=== PATIENT | male | born 1950 | race Caucasian/White ===

== ENCOUNTER 2018-12-01 11:42 | Inpatient (IN) | payer MEDICARE ==
[~2018-12-01] VITALS: Ht 185.4 cm; Wt 92.5 kg
[2018-12-01] MEDS ORDERED: ASPIRIN 81 MG CHEW TAB PO ONE ×2 (11:45→14:30)
[2018-12-01] MEDS ORDERED: LORAZEPAM2 MG PO (11:58)
[2018-12-01] MEDS ORDERED: LOW DOSE ASPIRI81 MG PO (11:58)
[2018-12-01] MEDS ORDERED: FUROSEMIDE40 MG PO (11:58)
[2018-12-01] MEDS ORDERED: BYSTOLIC10 MG PO (11:58)
[2018-12-01] MEDS ORDERED: TRIAMTERENE-HC1 EAC2 PO (11:58)
[2018-12-01] MEDS ORDERED: ZYRTEC10 M3 PO (11:58)
[2018-12-01] MEDS ORDERED: POTASSIUM CHLO20 ME1 PO (11:58)
[2018-12-01 11:59] LABS: BASOPHILS # (AUTO) 0.1 (0.0-0.1); BASOPHILS % 0.6 % (0.0-1.0); EOSINOPHILS # (AUTO) 0.3 (0.0-0.4); EOSINOPHILS % 2.4 % (0.0-6.0); HEMATOCRIT 46.7 % (38.2-49.6); HEMOGLOBIN 15.8 g/dL (14.0-18.0); LYMPHOCYTES # (AUTO) 1.9 (1.0-3.2); LYMPHOCYTES % 18.2 % (18.0-39.1); MEAN CORPUSCULAR HEMOGLOBIN 31.2 pg (28-32); MEAN CORPUSCULAR HGB CONC 33.8 g/dL (31-35); MEAN CORPUSCULAR VOLUME 92.1 fL (81-99); NEUTROPHILS # (AUTO) 7.1 (2.1-6.9); NEUTROPHILS % 68.2 % (38.7-80.0); PLATELET COUNT 182 x10e3/uL (140-360); RED BLOOD COUNT 5.07 x10e6/uL (4.3-5.7); RED CELL DISTRIBUTION WIDTH 13.8 % (11.7-14.4)
[2018-12-01] MEDS ORDERED: NITROGLYCERIN 0.4 MG SUBL SL ONE (12:00)
[2018-12-01 12:11] LABS: INR 0.93; PARTIAL THROMBOPLASTIN TIME 28.7 seconds (23.8-35.5); PROTHROMBIN TIME 13.3 seconds (11.9-14.5)
[2018-12-01 12:19] LABS: ALBUMIN 3.9 g/dL (3.5-5.0); ALBUMIN/GLOBULIN RATIO 1.1 (0.8-2.0); ANION GAP 18.2 mmol/L (8-16); CALCIUM 9.4 mg/dL (8.4-10.2); CREATININE, SERUM 1.64 mg/dL (0.72-1.25); POTASSIUM 4.2 mmol/L (3.5-5.1)
[2018-12-01] MEDS ORDERED: SODIUM CHLORIDE 0.9% 1000ML 1,000 ML IV STA (12:26)
--- NOTE | 2018-12-01 12:27 | Diagnostic Imaging Report ---
Examination: Single AP view of the chest. COMPARISON: None. INDICATION: Chest pain DISCUSSION: The lungs are well-inflated. No focal airspace consolidation, pleural effusion, or pneumothorax. Tortuous thoracic aorta with atherosclerotic calcification. Cardiomediastinal contour and pulmonary vasculature are otherwise within normal limits for portable, AP technique. No acute osseous abnormality. IMPRESSION: 1. No acute cardiopulmonary abnormalities. Signed by: Dr. Giuseppe Mcdonnell M.D. on 12/01/2018 12:23 PM
[2018-12-01] MEDS ORDERED: SODIUM CHLORIDE 0.9% 1000ML 1,000 ML ONE (12:29)
[2018-12-01 12:38] LABS: CREATINE KINASE MB 1.4 ng/mL (0-5.0); THYROID STIMULATING HORMONE 2.101 uIU/mL (0.350-4.940)
[2018-12-01] MEDS ORDERED: FENTANYL CITRATE/PF 100MCG/2 ML INJ IV ONE (14:00)
[2018-12-01] MEDS ORDERED: SODIUM CHLORIDE 0.9% 1000ML 1,000 ML IV ONE (14:00)
[2018-12-01] MEDS ORDERED: ONDANSETRON HCL INJ 2MG/ML 2ML 2 MG/ML VIAL IV STA (14:14)
[2018-12-01] MEDS ORDERED: HEPARIN SOD (PORCINE) 5,000 UNIT/ML VIAL IV ONE (14:15)
--- NOTE | 2018-12-01 14:22 | Diagnostic Imaging Report ---
EXAMINATION: CT of the chest with contrast, PE protocol. TECHNIQUE: Spiral CT images of the chest were performed from the lung apices through the level of the adrenal glands after the IV administration of 100 cc Isovue-370. Thin section reconstructions were obtained with special concentration on the pulmonary arteries. COMPARISON: Chest radiograph earlier 12/01/2018 CLINICAL HISTORY:Shortness of breath, chest pain DISCUSSION: Vasculature: Extensive filling defects extending from the distal left pulmonary artery to the left upper and lower lobar and all segmental branches. Similarly, filling defect in the distal right pulmonary artery, with extension into the right upper lobe pulmonary artery, and right middle lobe pulmonary artery and all segmental branches. There is also extension into the right lower lobe pulmonary artery and the lateral and posterior basal segmental pulmonary arteries. No saddle embolus. The main pulmonary artery is patent and the pulmonary outflow tract is of normal caliber, measuring 28 mm. There is no ectasia or aneurysmal dilatation of the thoracic aorta. Great vessel origins are of normal caliber and configuration. Atherosclerotic calcification of the [place] coronary arteries. Lungs: 4 mm nodule right lower lobe series 3 image 55. Bandlike opacities in the lingula and laterally within the left lower lobe. Juxtapleural reticular and groundglass opacities in the bilateral lower lobes. 4 mm juxtapleural left lower lobe nodule series 3 image 83. 3 mm nodule right lower lobe series 3 image 56. Scattered subcentimeter air-filled cysts. No consolidation or gross mass lesion. Airways: Trachea, mainstem bronchi, and central lobar and segmental bronchi are patent. Pleura: No pleural effusion or pneumothorax. Heart and mediastinum: Disproportionate right ventricular dilatation with ratio of the right ventricular to left ventricular diameter greater than 1. Right atrial enlargement is also noted with contrast reflux into the intrahepatic IVC. No pericardial effusion. Prominent epicardial fat. No axillary, hilar, or mediastinal lymphadenopathy. Abdomen: Simple cyst in hepatic segment 2. Additional subcentimeter lesions throughout the visualized portions of the liver too small to further characterize but likely to represent additional small cysts. Visualized portions of the spleen, pancreas, and adrenal glands are unremarkable. Bones and soft tissues: <The thoracic skeleton is normal for age. The soft tissues are unremarkable.> IMPRESSION: Extensive acute bilateral pulmonary emboli as detailed above, with right heart strain evidenced by right ventricular dilatation. Scattered bilateral pulmonary nodules as above, which should be assessed for stability by CT scan of the chest without contrast in one year if the patient has a history of tobacco use or is at otherwise high risk of malignancy per Fleischner Society 2017 guidelines. Atherosclerotic vascular disease. Findings communicated by telephone to nurse practitioner Paolo Syed in the emergency center at 2:08 PM 12/01/2018. Signed by: Dr. Giuseppe Mcdonnell M.D. on 12/01/2018 2:19 PM
[2018-12-01] MEDS ORDERED: MORPHINE SULFATE 2 MG/ML SYR 1ML IV PRN (14:30)
[2018-12-01] MEDS ORDERED: SODIUM CHLORIDE FLUSH 10 ML SYR INJ PRN (14:30)
[2018-12-01] MEDS ORDERED: ONDANSETRON HCL INJ 2MG/ML 2ML 2 MG/ML VIAL IV PRN (14:30)
[2018-12-01] MEDS: SODIUM CHLORIDE 0.9% 1000ML 1,000 ML IV SCH (14:53)
[2018-12-01] MEDS: MORPHINE SULFATE INJ 4 MG/ML INJ 1ML IV PRN ×2 (14:53→18:14)
--- OUTSIDE RECORDS SUMMARY | 2018-12-01 15:02 | XMS REPORT ---
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 Allergies, Adverse Reactions, Alerts This patient has no known allergies or adverse reactions. Medications This patient has no known medications. Results Test Description Test Time Test Comments Text Results Atomic Results Result Comments CT CHEST W 2018-12-01 14:08:00 [facility] [address] [address] Patient Name: EB MALONEY MR #: [id number] : 1950 Age/Sex: 67/M Req #: [id number] Adm Physician: Ordered by: PAOLO SMITH PLC ENGINEER Report #: [id number] Location: ER Room/Bed: Procedure: [id number] CT/CT CHEST W Exam Date: 12/01/18 Exam Time: 1330 REPORT STATUS: Signed EXAMINATION: CT of the chest with contrast, PE protocol. TECH NIQUE: Spiral CT images of the chest were performed from the lung apices through the level of the adrenal glands after the IV administration of 100 cc Isovue-370. Thin section reconstructions were obtained with special concentration on the pulmonary arteries. COMPARISON: Chest radiograph earlier 12/01/2018 CLINICAL HISTORY:Shortness of breath, chest pain DISCUSSION: Vasculature: Extensive filling defects extending from the distal left pulmonary artery to the left upper and lower lobar and all segmental branches. Similarly, filling defect in the distal right pulmonary artery, with extension into the right upper lobe pulmonary artery, and right middle lobe pulmonary artery and all segmental branches. There is also extension into the right lower lobe pulmonary artery and the lateral and posterior basal segmental pulmonary arteries. No saddle embolus. The main pulmonary artery is patent and the pulmonary outflow tract is of normal caliber, measuring 28 mm. There is no ectasia or aneurysmal dilatation of the thoracic aorta. Great vessel origins are of normal caliber and configuration. Atherosclerotic calcification of the [place] coronary arteries. Lungs: 4 mm nodule right lower lobe series 3 image 55. Bandlike opacities in the lingula and laterally within the left lower lobe. Juxtapleural reticular and groundglass opacities in the bilateral lower lobes. 4 mm juxtapleural left lower lobe nodule series 3 image 83. 3 mm nodule right lower lobe series 3 image 56. Scattered subcentimeter air-filled cysts. No consolidation or gross mass lesion. Airways: Trachea, mainstem bronchi, and central lobar and segmental bronchi are patent. Pleura: No pleural effusion or pneumothorax. Heart and mediastinum: Disproportionate right ventricular dilatation with ratio of the right ventricular to left ventricular diameter greater than 1. Right atrial enlargement is also noted with contrast reflux into the intrahepatic IVC. No pericardial effusion. Prominent epicardial fat. No axillary, hilar, or mediastinal lymphadenopathy. Abdomen: Simple cyst in hepatic segment 2. Additional subcentimeter lesions throughout the visualized portions of the liver too small to further characterize but likely to represent additional small cysts. Visualized portions of the spleen, pancreas, and adrenal glands are unremarkable. Bones and soft tissues: <The thoracic skeleton is normal for age. The soft tissues are unremarkable.> IMPRESSION: Extensive acute bilateral pulmonary emboli as detailed above, with right heart strain evidenced by right ventricular dilatation. Scattered bilateral pulmonary nodules as above, which should be assessed for stability by CT scan of the chest without contrast in one year if the patient has a history of tobacco use or is at otherwise high risk of malignancy per Fleischner Society 2017 guidelines. Atherosclerotic vascular disease. Findings communicated by telephone to nurse practitioner Paolo Smith in the emergency center at 2:08 PM 12/01/2018. Signed by: Dr. Brad Garcia M.D. on 12/01/2018 2:19 PM Dictated By: BRAD GARCIA MD 1419 Transcribed By: HO on 12/01/181418 COPY TO: PAOLO SMITH NP CHEST SINGLE (PORTABLE) 2018-12-01 12:22:00 [address] [address] Patient Name: EB MALONEY MR #: [id number] : 1950 Age/Sex: 67/M Req #: [id number] Adm Physician: Ordered by: PAOLO SMITH NP Report #: [id number] Location: ER Room/Bed: Procedure: [id number] DX/CHEST SINGLE (PORTABLE) Exam Date: 12/01/18 Exam Time: 1200 REPORT STATUS: Signed Examination: Single AP view of the chest. COMPAR SIMONE: None. INDICATION: Chest pain DISCUSSION: The lungs are well-inflated. No focal airspace consolidation, pleural effusion, or pneumothorax. Tortuous thoracic aorta with atherosclerotic calcification. Cardiomediastinal contour and pulmonary vasculature are otherwise within normal limits for portable, AP technique. No acute osseous abnormality. IMPRESSION: 1. No acute cardiopulmonary abnormalities. Signed by: Dr. Brad Garcia M.D. on 12/01/2018 12:23 PM Dictated By: BRAD GARCIA MD 1223 Transcribed By: HO on 12/01/181222 COPY TO: PAOLO SMITH NP
[2018-12-01] MEDS ORDERED: HEPARIN 25000UNITS/0.45% NS 250 ML BAG IV ONE (15:04)
[2018-12-01] MEDS: HEPARIN 25,000U/0.45% NS 250ML 1,500 UNIT in Premix Bag 250 ML IV SCH (15:10)
[2018-12-01] MEDS ORDERED: SODIUM CHLORIDE 0.9% 50ML 50 ML ONE (15:12)
[2018-12-01] MEDS ORDERED: IOPAMIDOL 370 MG/ML 200 ML INFUS..BTL INJ ONE (15:13)
[2018-12-01] MEDS ORDERED: LORAZEPAM 2 MG PO PRN (15:30)
--- NOTE | 2018-12-01 16:15 | Consultation ---
DATE OF CONSULTATION: Patient of Dr. Kendrick. 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 Worse yesterday morning. Drove himself to the doctor's office, nearly collapsed. Taken to the emergency room. History of hypertension. History of Meniere's disease. ALLERGIES: ALLERGIC TO PENICILLIN. MEDICATIONS 1. Bystolic. 2. Triamterene. 3. Potassium. 4. Lasix. 5. Lorazepam. PAST SURGICAL HISTORY: Has had a shunt in the right ear [address] Mooney. SOCIAL HISTORY: Nonsmoker. No alcohol. Claims to be active. Family corroborates this. FAMILY HISTORY: Positive for cancer and coronary disease. thinks his mother had pulmonary emboli, presumably associated with cancer. PHYSICAL EXAMINATION GENERAL: This is a tall white male in no acute distress, appears stated age. Has evidence of vitiligo. VITAL SIGNS: Temperature 96.8, pulse 100, respirations 22, blood pressure 124/90. LUNGS: Bilateral rales. HEART: Regular rhythm. ABDOMEN: Nontender. EXTREMITIES: Scar left knee. Trace edema, left. IMPRESSIONS 1. Deep venous thrombosis, left lower extremity, with submassive pulmonary emboli. 2. Hypertension. 3. Vitiligo. 4. History of Meniere's disease. As he is not hypotensive, we will defer tPA. As he has moderate renal failure, will defer Lovenox but continue IV heparin. Consider Coumadin therapy. Consider checking CEA in view of his family history. Patient does have multiple subcentimeter pulmonary nodules, too small to biopsy. Thank you for this kind referral. Job#: [id number] JOHNNY
[2018-12-01 16:52] LABS: BILIRUBIN,URINE NEGATIVE (NEGATIVE); CLARITY,URINE SL CLOUDY (CLEAR); COLOR,URINE YELLOW (YELLOW); KETONES,URINE NEGATIVE (NEGATIVE); LEUKOCYTE ESTERASE ,URINE NEGATIVE (NEGATIVE); NITRITE,URINE NEGATIVE (NEGATIVE); PROTEIN,URINE DIPSTICK NEGATIVE (NEGATIVE); URINE UROBILINOGEN 0.2 mg/dL (0.2 - 1)
[2018-12-01 17:04] LABS: EPITHELIAL CELLS,URINE RARE /LPF; MUCUS,URINE FEW (RARE)
--- NOTE | 2018-12-01 19:00 | NUR ---
RECEIVED REPORT FROM ALEKSANDRA WORRELL
--- NOTE | 2018-12-01 19:02 | Consultation ---
DATE OF CONSULTATION: December 01, 2018 CARDIOLOGY CONSULTATION REASON FOR CONSULT: Pulmonary embolism. CHIEF COMPLAINT: Syncope and chest pain. HISTORY OF PRESENT ILLNESS: Patient is a 67-year-old man, no prior history of DVT or PE, who presented with an episode of passing out right before his primary care visit, was seen by his primary care doctor and based on his history of chest pain and syncope was sent to the ER for further workup. Was found to have borderline blood pressure and was found to have acute pulmonary embolism in bilateral pulmonary arteries. Currently patient having mild chest pain otherwise and some mild shortness of breath. Denies any previous history of cardiovascular disease, DVT of pulmonary embolism. No bleeding issues. REVIEW OF SYSTEMS: As above, otherwise negative. FAMILY HISTORY: No family history of early CAD or sudden cardiac . SOCIAL HISTORY: Patient does not smoke, drink or abuse drugs. OUTPATIENT MEDICATIONS: Reviewed. PHYSICAL EXAMINATION: VITALS: Temperature afebrile, pulse 96, respiratory rate 18, blood pressure 121/82, satting 99% on 5 liters. GENERAL: A middle-aged man in mild respiratory distress. CARDIOVASCULAR: Tachycardic, regular. No murmurs, rubs, or gallops. RV heave. Palpable carotid pulses. Palpable radial pulses. RESPIRATORY: Clear to auscultation bilaterally. ABDOMEN: Soft, nontender, nondistended. NEURO AND PSYCH: Alert and oriented to person, place, and time. Normal affect. LABORATORY DATA: Reviewed. IMAGING DATA: Reviewed. Shows bilateral pulmonary emboli. ECG reviewed, shows RV strain. Echocardiogram reviewed, shows biventricular dysfunction and moderate LV hypertrophy, moderate tricuspid regurgitation, severe right ventricular systolic dysfunction, and moderate dilation of the right ventricle. Pulmonary artery systolic pressure approximately 55 mmHg. ASSESSMENT: 1. Acute bilateral pulmonary emboli. 2. Acute right ventricular dysfunction. 3. Acute deep vein thrombosis left lower extremity. 4. History of hypertension. 5. Hyperlipidemia. PLAN: Patient already started on IV heparin. Agree with this. Recommend starting him on IV fluids to maintain blood pressure given acute RV dysfunction. Will monitor him overnight. If there are any signs of end-organ hypoperfusion or shock, will need to be transferred to a facility with higher level of care. Please admit to ICU and monitor closely. Thank you for this consult. Will continue to follow. Job#: [id number] EV
--- NOTE | 2018-12-01 19:10 | NUR ---
PT AWAKE ALERT SKIN W/D RESP NONLAB, NAD NOTED. RESTING IN POC, FAMILY AT BEDSIDE
--- NOTE | 2018-12-01 22:17 | NUR ---
PT REQUESTING ATIVAN, MEDICATED PER ORDERS. AWAKE ALERT SKIN W/D RESP NONLAB. NAD NOTED.
[2018-12-01] MEDS: LORAZEPAM 1 MG TAB PO PRN (22:18)
[2018-12-02] MEDS: SODIUM CHLORIDE 0.9% 1000ML 1,000 ML IV SCH ×3 (00:07→21:41)
--- NOTE | 2018-12-02 00:25 | NUR ---
erp notified dr knox of troponin 0.5
--- NOTE | 2018-12-02 02:00 | NUR ---
RESTING WITH EYES CLOSED, EASILY AROUSED, SKIN W/D RESP NONLAB, NAD NOTED. DENIES ANY COMPLAINTS
--- NOTE | 2018-12-02 05:15 | NUR ---
RESTING WITH EYES CLOSED, SKIN W/D RESP NONLAB, NAD NOTED. DENIES COMPLAINTS.
[2018-12-02 05:34] LABS: BASOPHILS # (AUTO) 0.1 (0.0-0.1); BASOPHILS % 0.7 % (0.0-1.0); EOSINOPHILS # (AUTO) 0.3 (0.0-0.4); EOSINOPHILS % 2.8 % (0.0-6.0); HEMATOCRIT 39.3 % (38.2-49.6); HEMOGLOBIN 12.7 g/dL (14.0-18.0); LYMPHOCYTES # (AUTO) 1.3 (1.0-3.2); LYMPHOCYTES % 14.3 % (18.0-39.1); MEAN CORPUSCULAR HEMOGLOBIN 30.8 pg (28-32); MEAN CORPUSCULAR HGB CONC 32.3 g/dL (31-35); MEAN CORPUSCULAR VOLUME 95.4 fL (81-99); MONOCYTES # (AUTO) 0.9 (0.2-0.8); MONOCYTES % 10.7 % (4.4-11.3); NEUTROPHILS # (AUTO) 6.2 (2.1-6.9); NEUTROPHILS % 70.8 % (38.7-80.0); PLATELET COUNT 152 x10e3/uL (140-360); RED BLOOD COUNT 4.12 x10e6/uL (4.3-5.7)
[2018-12-02 05:59] LABS: CREATINE KINASE MB 2.6 ng/mL (0-5.0)
--- NOTE | 2018-12-02 06:11 | History and Physical ---
CHIEF COMPLAINT: Pulmonary embolus with DVT in right leg with pulmonary embolus and right-sided heart failure. HISTORY OF PRESENT ILLNESS: Patient is a gentleman who was in his usual normal state of health. He has a history of hypertension who presented to my office and collapsed in the foyer, but never lost consciousness and never lost stability. He was brought over by EMS to the hospital where he was noticed to have DVT of the right leg with pulmonary embolus. Mostly pulmonary embolus with some right-sided heart failure symptoms. He was placed on heparin, and he is now admitted for further evaluation and treatment. PAST MEDICAL HISTORY: Hypertension, chronic kidney disease, stage 3. MEDICATIONS: See DEC. ALLERGIES: PENICILLIN. SOCIAL HISTORY: Lives at home with his . Nonsmoker and nondrinker. FAMILY HISTORY: Noncontributory. PHYSICAL EXAMINATION VITLALS: 98.6, blood pressure 104/70, pulse 88, sats 99% on nasal cannula. GENERAL: No apparent distress. NECK: Supple. No lymphadenopathy. CARDIOVASCULAR: Regular rate and rhythm. LUNGS: Clear to auscultation bilaterally. ABDOMEN: Soft and nontender. EXTREMITIES: No clubbing or cyanosis. No edema. NEUROLOGICAL: Nonfocal. ASSESSMENT AND PLAN 1. Deep venous thrombosis: Continue with . 2. Hypertension: Will continue to monitor since his blood pressure is stable. 3. Right-sided heart failure: Will continue to monitor. Cardiology is on board. 4. Chronic kidney disease, stage 3: Will continue to monitor as well. Please see hospital chart for full details. Job#: [id number] MT
[2018-12-02 06:17] LABS: ANION GAP 14.3 mmol/L (8-16); BLOOD UREA NITROGEN 27 mg/dL (7-26); BUN/CREATININE RATIO 25 (6-25); CALCIUM 7.9 mg/dL (8.4-10.2); CARBON DIOXIDE 18 mmol/L (22-29); CHLORIDE 112 mmol/L (98-107); CREATININE, SERUM 1.06 mg/dL (0.72-1.25); EST GLOMERULAR FILTRATION RATE > 60 ML/MIN (60-); GLUCOSE 100 mg/dL (74-118); POTASSIUM 4.3 mmol/L (3.5-5.1); SODIUM 140 mmol/L (136-145)
[2018-12-02] MEDS: LORAZEPAM 1 MG TAB PO PRN ×2 (06:34→21:41)
--- NOTE | 2018-12-02 07:02 | NUR ---
report to elen bravo
--- NOTE | 2018-12-02 07:38 | NUR ---
DR. VALDEZ AT BEDSIDE FOR PATIENT EVAL AT THIS TIME.
--- NOTE | 2018-12-02 07:38 | NUR ---
SALOMEE BP 85/66, VIANEYE BP 89/69; DR. VALDEZ ROUNDING, NOTIFIED OF BP, REQUESTING MANUAL BP. ERAN MANUAL BP 94/60. DR. VALDEZ NOTIFIED, ORDERED TO HOLD BYSTOLIC AND TRIAMTERENE/HCTZ AT THIS TIME.
[2018-12-02] MEDS ORDERED: GUAIFENESIN 200 MG/10 ML UDC PO PRN (07:45)
[2018-12-02] MEDS: NEBIVOLOL 10 MG TAB PO SCH (08:08)
[2018-12-02] MEDS: TRIAMTERENE/HCTZ 37.5-25 MG TAB PO SCH (08:09)
--- NOTE | 2018-12-02 08:09 | NUR ---
Dr. Parham rounding again at this time. EKG provided. No new orders rec'd.
[2018-12-02] MEDS: LORATADINE 10 MG TAB PO SCH (08:10)
[2018-12-02] MEDS: PANTOPRAZOLE SOD 40 MG TABEC PO SCH (08:10)
[2018-12-02] MEDS: ASPIRIN 81 MG ENTERIC COATED PO SCH (08:10)
[2018-12-02] MEDS: POTASSIUM CHLORIDE 20 MEQ TAB CR PO SCH (08:10)
[2018-12-02] MEDS ORDERED: HEPARIN 25000UNITS/0.45% NS 250 ML BAG IV ONE (08:11)
--- NOTE | 2018-12-02 08:15 | NUR ---
PT ASSISTED WITH BREAKFAST TRAY AT THIS TIME, TOLERATING WELL.
[2018-12-02] MEDS: HEPARIN 25,000U/0.45% NS 250ML 1,500 UNIT in Premix Bag 250 ML IV SCH ×2 (08:16→21:48)
[2018-12-02] MEDS ORDERED: NON-FORMULARY MEDICATION (Aspirin (Low Dose Aspirin Ec) 81 MG) PO SCH (09:00)
--- NOTE | 2018-12-02 10:03 | NUR ---
DR. Jo-Ann BOND AND DR. JEFERSON GARCÍA MD AT BEDSIDE DISCUSSING BENEFITS, RISKS, AND ALTERNATIVE TREATMENTS AT THIS TIME. PT VERBALIZES UNDERSTANDING, VERBAL CONSENT GIVEN AT THIS TIME.
[2018-12-02] MEDS ORDERED: ALTEPLASE 50 MG/VIAL (29 MILLION IU) IV NR (10:45)
--- NOTE | 2018-12-02 11:05 | NUR ---
Consents signed & placed on chart for PICC & TPA administration.
--- NOTE | 2018-12-02 11:15 | NUR ---
Laurent, RN PICC nurse at bedside, evaluating pt for PICC line placement.
--- NOTE | 2018-12-02 11:22 | NUR ---
DR. BHANDARI UPDATED ON PATIENT STATUS, NO NEW ORDERS RECEIVED AT THIS TIME, IN AGREEMENT WITH CURRENT ORDERS FOR CARE.
--- NOTE | 2018-12-02 12:15 | NUR ---
X-RAY AT BEDSIDE FOR POST-PROCEDURE CXR AT THIS TIME.
--- NOTE | 2018-12-02 12:30 | NUR ---
PT TRANSPORTED VIA STRETCHER TO RADIOLOGY FOR REPEAT POST-PROCEDURE CXR WITH GILMA CONTE AT THIS TIME. OXYGEN IN PLACE.
--- NOTE | 2018-12-02 12:53 | Diagnostic Imaging Report ---
EXAMINATION: CHEST XRAY LINE PLACEMENT INDICATION: Status post PICC. COMPARISON: Chest radiograph and CT Chest 12/01/2018. FINDINGS: TUBES and LINES: Interval placement of right-sided PICC which terminates in the lower SVC near the cavoatrial junction. LUNGS: Lungs are well inflated. Patchy opacities at the lung bases, likely atelectasis. There is no evidence of pneumonia or pulmonary edema. Multiple pulmonary nodules noted on CT chest from 12/01/2018 are not well characterized by radiograph. PLEURA: No pleural effusion or pneumothorax. HEART AND MEDIASTINUM: The cardiomediastinal silhouette is unchanged. Atherosclerotic calcifications of the aortic arch. BONES AND SOFT TISSUES: No acute osseous abnormality. UPPER ABDOMEN: No free air under the diaphragm. IMPRESSION: Interval placement of right-sided PICC which terminates in the lower SVC near the cavoatrial junction. No evidence of pneumothorax. Signed by: Dr. Damien Oneal MD on 12/02/2018 12:49 PM
--- NOTE | 2018-12-02 12:55 | NUR ---
Right sided PICC line ok to use per Radiology MD.
--- NOTE | 2018-12-02 12:58 | NUR ---
PT TRANSFERRED TO HOSPITAL BED AT THIS TIME, TOLERATING WELL, CALL LIGHT WITHIN EASY REACH, WILL CONTINUE TO MONITOR.
--- NOTE | 2018-12-02 13:00 | NUR ---
Pt sitting up comfortably in bed. RR even and unlabored. Vitals stable at this present time. Family at bedside. Call light remains in pt reach. Pt denies any CP or any other discomfort at the present time. Will continue to monitor.
--- NOTE | 2018-12-02 15:26 | NUR ---
Pt resting comfortably. RR even and unlabored. Pt denies any CP or any other discomfort at the present time. Family remains at bedside. Will continue to monitor.
[2018-12-02] MEDS ORDERED: IPRATROPIUM BROMIDE 0.02% 2.5 ML NEB NEB PRN (16:00)
[2018-12-02] MEDS ORDERED: BENZONATATE 100 MG CAP PO PRN (16:00)
--- NOTE | 2018-12-02 16:05 | Progress Note ---
DATE: December 02, 2018 CARDIOLOGY PROGRESS NOTE SUBJECTIVE: Is still having some mild chest pain, mild shortness of breath. Blood pressure has been borderline all morning. OBJECTIVE VITAL SIGNS: Temperature 98.8, pulse 100, respiratory rate 20, blood pressure 96/66, satting 96% on nasal cannula. GENERAL: Middle-aged white man in no acute distress. CARDIOVASCULAR: Tachycardic, regular, RV heave. No murmurs. LUNGS: Clear to auscultation. ABDOMEN: Soft, nontender, nondistended. Obese. NEURO: Intact, alert and oriented to person, place and time. Normal affect. INPATIENT MEDICATIONS: Reviewed. LABORATORY DATA: Reviewed. IMAGING DATA: Reviewed. TELEMETRY: Reviewed. Shows sinus tachycardia. ASSESSMENTS 1. Acute bilateral pulmonary emboli. 2. Acute right ventricular dysfunction. 3. Acute deep vein thromboses of left lower extremity. PLAN: Had a long discussion regarding risks and benefits of systemic tPA with the patient. The patient is agreeable to proceed with dosing tPA. Continue heparin drip. Still awaiting transfer to the ICU. Monitor closely for any bleeding issues post tPA. Will transfer for CT scan of the head if any symptoms change. Would avoid starting him on Levophed unless mean arterial pressures were to decrease below 60. Will continue IV fluids given RV dysfunction. Thank you for this consult. Will continue to follow. Job#: [id number] JOHNNY
[2018-12-02] MEDS ORDERED: AMIODARONE HCL 150MG 100 ML IV ONE (18:15)
[2018-12-02] MEDS ORDERED: AMIODARONE 900MG 500 ML IV ONE (18:29)
--- NOTE | 2018-12-02 19:15 | NUR ---
REPORT GIVEN TO GILMA JOHN CANINE ENFORCEMENT OFFICER NURSE.
--- NOTE | 2018-12-02 19:30 | NUR ---
RECEIVED ORDERS FROM DR. CARROLL TO REDRAW PTT AT THIS TIME, CONTINUE HEPARIN FOR PTT <80 PER PROTOCL BUT WITHOUT STARTING BOLUS.
[2018-12-02] MEDS: NOREPINEPHRINE INJ 4MG/4ML 8 MG in DEXTROSE 5% 250ML 250 ML IV SCH (20:29)
--- NOTE | 2018-12-03 00:11 | NUR ---
patient resting in bed, no distress noted, call light is in reach
--- NOTE | 2018-12-03 04:21 | NUR ---
ptt within therapeutic range.
[2018-12-03 04:36] LABS: BASOPHILS % 0.5 % (0.0-1.0); EOSINOPHILS # (AUTO) 0.5 (0.0-0.4); EOSINOPHILS % 6.4 % (0.0-6.0); HEMATOCRIT 36.2 % (38.2-49.6); HEMOGLOBIN 12.2 g/dL (14.0-18.0); LYMPHOCYTES # (AUTO) 1.3 (1.0-3.2); LYMPHOCYTES % 15.3 % (18.0-39.1); MEAN CORPUSCULAR HGB CONC 33.7 g/dL (31-35); MEAN CORPUSCULAR VOLUME 91.9 fL (81-99); MONOCYTES % 11.7 % (4.4-11.3); NEUTROPHILS # (AUTO) 5.5 (2.1-6.9); NEUTROPHILS % 65.6 % (38.7-80.0); PLATELET COUNT 135 x10e3/uL (140-360); RED BLOOD COUNT 3.94 x10e6/uL (4.3-5.7); RED CELL DISTRIBUTION WIDTH 13.6 % (11.7-14.4)
[2018-12-03 05:01] LABS: ALANINE AMINOTRANSFERASE 8 IU/L (0-55); ALBUMIN 2.9 g/dL (3.5-5.0); ALBUMIN/GLOBULIN RATIO 1.3 (0.8-2.0); ALKALINE PHOSPHATASE 48 IU/L (40-150); ANION GAP 12.7 mmol/L (8-16); BLOOD UREA NITROGEN 17 mg/dL (7-26); BUN/CREATININE RATIO 19 (6-25); CARBON DIOXIDE 22 mmol/L (22-29); CHLORIDE 108 mmol/L (98-107); EST GLOMERULAR FILTRATION RATE > 60 ML/MIN (60-); GLUCOSE 96 mg/dL (74-118); POTASSIUM 3.7 mmol/L (3.5-5.1); SODIUM 139 mmol/L (136-145)
[2018-12-03] MEDS: SODIUM CHLORIDE 0.9% 1000ML 1,000 ML IV SCH ×2 (07:00→17:10)
--- NOTE | 2018-12-03 07:10 | NUR ---
WALKING ROUNDS COMPLETED AT THIS TIME WITH GILMA JOHN. DRIPS VERIFIED, AMIODARONE DECREASED, SEE TITRATION WORKSHEET. PATIENT RESTING IN BED, DENIES C/O PAIN, SOB, OR COUGH AT THIS TIME, CALL LIGHT IN REACH.
--- NOTE | 2018-12-03 07:14 | NUR ---
walking rounds with deon DILLARD
--- NOTE | 2018-12-03 07:44 | Diagnostic Imaging Report ---
EXAMINATION: CHEST SINGLE (PORTABLE) INDICATION: ^cough ^[id number] ^[id number] COMPARISON: 12/02/[address] chest 12/01/2018 FINDINGS: AP view TUBES and LINES: Stable right PICC with tip overlying the cavoatrial junction. LUNGS: Lungs are well inflated. Worsening bandlike airspace opacity in the left lower lobe. Subsegmental atelectasis in the medial right lower lobe is unchanged. PLEURA: No pleural effusion or pneumothorax. HEART AND MEDIASTINUM: The cardiac silhouette is mildly prominent. BONES AND SOFT TISSUES: No acute osseous lesion. Soft tissues are unremarkable. UPPER ABDOMEN: No free air under the diaphragm. IMPRESSION: Worsening left lower lobe airspace opacity suggestive of worsening atelectasis or developing pneumonia. Continue to follow-up. Signed by: Dr. Amelia Barrow M.D. on 12/03/2018 7:41 AM
--- NOTE | 2018-12-03 08:55 | Progress Note ---
DATE: SUBJECTIVE: This patient comes in with chest pain. The patient was reported to have pulmonary embolism. TPA given. The patient is on heparin drip right now. Patient also developed atrial flutter. The patient is started on amiodarone drip. Currently, rate is controlled. OBJECTIVE VITAL SIGNS: Temperature is 98.3, pulse of 70, blood pressure is 143/77, pulse oximetry is 100%. HEENT: Normocephalic, atraumatic. Pupils are reactive to light and accommodation. CVS: S1 and S2. Regular rate and rhythm. No murmurs. LUNGS: Clear to auscultation. ABDOMEN: Soft, nontender, nondistended. EXTREMITIES: No clubbing, no cyanosis, no edema. IMAGING: The patient's venous extremity did show DVT, so CT chest was done and showed extensive acute bilateral pulmonary embolism, scattered bilateral pulmonary nodules, and also atherosclerotic valvular disease. ASSESSMENT 1. Acute bilateral pulmonary embolism, status post TPA. 2. Acute right ventricular dysfunction. 3. Deep venin thrombosis of the right lower extremity. 4. Hypertension. 5. Hyperlipidemia. PLAN 1. Patient is currently on heparin drip. Continue with the same. 2. Also on amiodarone for atrial fibrillation, controlled. 3. We will continue to monitor the patient. Continue with heparin drip and taper off the amiodarone. Further recommendations per clinical course. We will continue to monitor the patient along with the consultants. Job#: [id number]
[2018-12-03] MEDS: POTASSIUM CHLORIDE 20 MEQ TAB CR PO SCH (10:30)
[2018-12-03] MEDS: PANTOPRAZOLE SOD 40 MG TABEC PO SCH (10:30)
[2018-12-03] MEDS: LORATADINE 10 MG TAB PO SCH (10:30)
[2018-12-03] MEDS: ASPIRIN 81 MG ENTERIC COATED PO SCH (10:30)
[2018-12-03] MEDS: TRIAMTERENE/HCTZ 37.5-25 MG TAB PO SCH (10:34)
[2018-12-03] MEDS: NEBIVOLOL 10 MG TAB PO SCH (10:34)
--- NOTE | 2018-12-03 10:35 | NUR ---
GILMA FOUNTAINCARROT TIER AT BEDSIDE AT THIS TIME TO REDRESS PICC LINE SITE, PATIENT WAS COMPLAINING OF DISCOMFORT WITH THE ADHESIVE.
[2018-12-03] MEDS: NOREPINEPHRINE INJ 4MG/4ML 8 MG in DEXTROSE 5% 250ML 250 ML IV SCH (11:00)
--- NOTE | 2018-12-03 11:47 | Progress Note ---
DATE: CARDIOLOGY PROGRESS NOTE SUBJECTIVE: Patient states that he feels so much better today. Denies any chest pain, shortness of breath, palpitations, or dizziness. He is status post TPA yesterday. OBJECTIVE VITAL SIGNS: Temperature 98.3, pulse 74, respiratory rate 19, blood pressure 128/83, oxygen saturation 98% on room air. GENERAL: Alert and oriented x3, resting comfortably in bed, does not appear to be in any acute distress. LUNGS: Diminished breath sounds posterior lower lobes with some crackles in the left lower lobe. Otherwise clear to auscultation in the upper lobes. CARDIOVASCULAR: Regular rate and rhythm. Normal S1, S2. No murmurs noted. ABDOMEN: Soft, nontender. EXTREMITIES: Lower extremities, trace edema noted. CARDIOVASCULAR MEDICATIONS 1. Aspirin 81 mg p.o. daily. 2. Heparin IV drip. 3. Amiodarone IV drip. 4. Bystolic 10 mg p.o. daily. 5. Maxzide 1 tablet p.o. daily. LABS: WBC 8.41, hemoglobin 12.2, hematocrit 36.2, platelets 135. Sodium 139, potassium 3.7, BUN 17, creatinine 0.90. AST 12, ALT 8, alkaline phosphatase 48. Chest x-ray from this morning with worsening left lower lobe airspace opacity suggestive of worsening atelectasis or developing pneumonia, continue to follow. ASSESSMENT 1. Paroxysmal atrial fibrillation, reported atrial flutter last night. 2. Acute bilateral pulmonary emboli. 3. Acute right ventricular dysfunction. 4. Acute deep venous thrombosis in the left lower lobe. 5. Hypertension. PLAN: Medications will be adjusted and altered this morning. Transition from heparin drip to Xarelto. Instructions have been given to the nurse. Okay to discontinue amiodarone drip, transition to amiodarone p.o. In addition, we will be adding metoprolol and Bystolic. Continue to monitor this patient very closely. Unless symptoms change, no reasons for repeat CT at this time. Continue to monitor for any obvious signs of bleeding. We will continue to follow this patient very closely. Dictated by: Ijeoma Garibay NP Job#: [id number] SANTHOSH
--- NOTE | 2018-12-03 12:00 | NUR ---
Dr. Carr rounding at this time.
[2018-12-03] MEDS ORDERED: RIVAROXABAN 15 MG TABLET PO SCH ×3 (13:15→17:00)
[2018-12-03] MEDS: RIVAROXABAN 15 MG TABLET PO SCH ×2 (13:45→17:00)
[2018-12-03] MEDS ORDERED: HEPARIN 25000UNITS/0.45% NS 250 ML BAG IV ONE (13:45)
[2018-12-03] MEDS: AMIODARONE HCL 200 MG TAB PO SCH ×2 (15:00→17:00)
[2018-12-03] MEDS: METOPROLOL TARTRATE 50 MG TAB PO SCH (15:50)
[2018-12-03] MEDS ORDERED: AMIODARONE HCL 200 MG TAB PO SCH (17:00)
--- NOTE | 2018-12-03 17:10 | NUR ---
PT ASSISTED WITH DINNER TRAY AT THIS TIME, TOLERATING WELL.
[2018-12-03 18:29] VITALS: BP 130/70
[2018-12-03 18:31] VITALS: BP 130/70
[2018-12-03 18:42] VITALS: BP 130/70
--- NOTE | 2018-12-03 19:10 | NUR ---
REPORT RECEIVED FROM OFF GOING NURSE, PT SITTING UP IN BED ALERT AND ORIENTED, PT VISITING WITH FAMILY, O2 NC WORN, HOB ELEVATED, TELEMETRY WITH CONT PULSE OX NOTED, DENIES NEEDS, IV INFUSING PER ORDER, CALL LIGHT IN REACH, INSTRUCTED TO CALL WITH NEEDS
[2018-12-03 20:00] VITALS: BP 144/80
[2018-12-03] MEDS: LORAZEPAM 1 MG TAB PO PRN (20:50)
[2018-12-03 21:02] VITALS: BP 144/80
[2018-12-04] VITALS (8 sets, daily range): BP systolic 101–141; BP diastolic 58–81
[2018-12-04] MEDS: SODIUM CHLORIDE 0.9% 1000ML 1,000 ML IV SCH ×2 (02:20→13:27)
--- NOTE | 2018-12-04 04:47 | NUR ---
PT RESTING IN BED WITH EYES CLOSED, HOB ELEVATED, O2 NC WORN, NO DISTRESS NOTED, MANAGER INPATIENT WORN, CALL LIGHT IN REACH, IV INFUSING PER ORDER
--- NOTE | 2018-12-04 06:53 | Progress Note ---
DATE: SUBJECTIVE: The patient is here for pulmonary embolism, status post TPA. Currently asymptomatic. The patient is on Xarelto, has been switched from the heparin drip. No symptoms. The patient did walk yesterday. Pulse oximetry is maintaining and no shortness of breath or chest pain noted by the patient. MEDICATIONS: Currently, the patient is on amiodarone, aspirin, benzonatate, loratadine, metoprolol, morphine sulfate as needed, Zofran as needed, pantoprazole, potassium chloride, and Xarelto. OBJECTIVE: VITAL SIGNS: Temperature is 98.1, pulse is 101, respirations of 18, blood pressure is 108/69, pulse oximetry of 96%. He is on 3 liters of nasal cannula. HEENT: Normocephalic, atraumatic. Pupils are reactive to light and accommodation. CVS: S1 and S2, irregularly irregular. ABDOMEN: Nontender, nondistended. EXTREMITIES: No clubbing, no cyanosis or edema. LABORATORY VALUES: Yesterday, his white count was 8.4, hemoglobin of 12.2, and hematocrit of 36.2. Chemistries; sodium 139, potassium 3.7, BUN 17, creatinine 0.90. Troponins 0.581, trending down to 0.348. His carcinoembryonic antigen was 1.4. ASSESSMENT: 1. Pulmonary embolism, status post tissue plasminogen activator. 2. Ventricular dysfunction. 3. Deep venin thrombosis. 4. Hypertension. 5. Hyperlipidemia. 6. Paroxysmal atrial fibrillation. PLAN: The patient will be monitored on tele. The patient has been flipping from AFib to normal sinus rhythm. Transition from heparin to Xarelto has been done. The patient is back on amiodarone p.o. from the drip. Continue to monitor this patient very closely. Patient does get tachycardic from [id number]. His blood pressure has been maintained low. Amiodarone will be adjusted for rate control. We will continue to monitor the patient with consultants, may need a CT of the abdomen to rule out any pathology of deep vein thrombosis later on. Job#: [id number] ALISA
[2018-12-04] MEDS: PANTOPRAZOLE SOD 40 MG TABEC PO SCH (08:21)
[2018-12-04] MEDS: METOPROLOL TARTRATE 50 MG TAB PO SCH ×3 (08:21→16:48)
[2018-12-04] MEDS: LORATADINE 10 MG TAB PO SCH (08:21)
[2018-12-04] MEDS: AMIODARONE HCL 200 MG TAB PO SCH ×2 (08:21→16:48)
[2018-12-04] MEDS: ASPIRIN 81 MG ENTERIC COATED PO SCH (08:21)
[2018-12-04] MEDS: POTASSIUM CHLORIDE 20 MEQ TAB CR PO SCH (08:21)
[2018-12-04] MEDS: RIVAROXABAN 15 MG TABLET PO SCH ×2 (08:22→16:48)
[2018-12-04] MEDS: LORAZEPAM 1 MG TAB PO PRN ×2 (08:23→22:05)
[2018-12-04] MEDS: NOREPINEPHRINE INJ 4MG/4ML 8 MG in DEXTROSE 5% 250ML 250 ML IV SCH (11:00)
--- NOTE | 2018-12-04 12:06 | Progress Note ---
DATE: CARDIOLOGY PROGRESS NOTE SUBJECTIVE: Patient states that he feels much better today. Denies any chest pain, palpitations, or shortness of breath. OBJECTIVE VITAL SIGNS: Temperature 97.8, pulse 106, respiratory rate 21, blood pressure 122/74, oxygen saturation 95% on 3 liters nasal cannula. GENERAL: Alert and oriented x 3, resting comfortably in bed, does not appear to be in any acute distress. LUNGS: Clear to auscultation throughout. No wheezing. No rhonchi or crackles. CARDIOVASCULAR: Regular rate and rhythm. Tachycardic this morning. Atrial flutter noted this morning. ABDOMEN: Soft, nontender. Normoactive bowel sounds. EXTREMITIES: Lower extremities, trace edema bilaterally. CARDIOVASCULAR MEDICATIONS 1. Xarelto 15 mg p.o. b.i.d. 2. Amiodarone 200 mg p.o. b.i.d. 3. Metoprolol 50 mg p.o. b.i.d. 4. Aspirin 81 mg p.o. daily. LABS: No new labs today. ASSESSMENT 1. Paroxysmal atrial flutter, last episode this morning. 2. Acute bilateral pulmonary emboli. 3. Acute right ventricular dysfunction. 4. Acute deep venous thrombosis in the left lower extremity. 5. Hypertension; however, hypotensive now. PLAN: Repeat CT scan per wireworker supervisor this morning. We will provide Xarelto samples to this patient for transition to home and continuation of therapy. Maintain patient on telemetry. Up-titrate dose of metoprolol above for better rate control. Keep in-house for at least another day as we continue to monitor this patient for symptom improvement. Repeat echocardiogram within 1 week after being discharged. We will continue to follow very closely. Dictated by: Ijeoma Garibay NP Job#: [id number] LPA
--- NOTE | 2018-12-04 15:05 | NUR ---
Visit made by the Spiritual Care Department Pastoral Visitor, Lisa Polk. PV provided pastoral presence, hospitality, and supportive listening. Pastoral Visitor informed pt/family of the scope of [employer] and availability. SHONA WHITE Active [employer] Systems Administrator Spiritual Care Department O: [phone] Pager: [phone] ([phone] calling from)
--- NOTE | 2018-12-04 19:32 | NUR ---
received report from day nurse. patient is resting comfortably in bed. bed is in lowest position and call lopez is within reach. will continue to monitor patient.
[2018-12-05 00:41] VITALS: BP 125/65
[2018-12-05 04:00] VITALS: BP 155/68
[2018-12-05 05:15] LABS: BASOPHILS # (AUTO) 0.1 (0.0-0.1); BASOPHILS % 0.7 % (0.0-1.0); EOSINOPHILS # (AUTO) 0.5 (0.0-0.4); EOSINOPHILS % 6.1 % (0.0-6.0); HEMATOCRIT 35.3 % (38.2-49.6); HEMOGLOBIN 11.8 g/dL (14.0-18.0); LYMPHOCYTES # (AUTO) 0.9 (1.0-3.2); LYMPHOCYTES % 11.9 % (18.0-39.1); MEAN CORPUSCULAR HEMOGLOBIN 31.1 pg (28-32); MEAN CORPUSCULAR HGB CONC 33.4 g/dL (31-35); MEAN CORPUSCULAR VOLUME 92.9 fL (81-99); MONOCYTES # (AUTO) 0.8 (0.2-0.8); MONOCYTES % 11.2 % (4.4-11.3); NEUTROPHILS # (AUTO) 5.2 (2.1-6.9); NEUTROPHILS % 69.7 % (38.7-80.0); PLATELET COUNT 199 x10e3/uL (140-360); RED CELL DISTRIBUTION WIDTH 13.1 % (11.7-14.4)
[2018-12-05] MEDS: SODIUM CHLORIDE 0.9% 1000ML 1,000 ML IV SCH (05:32)
[2018-12-05 05:42] LABS: ANION GAP 11.7 mmol/L (8-16); BLOOD UREA NITROGEN 14 mg/dL (7-26); BUN/CREATININE RATIO 15 (6-25); CALCIUM 8.3 mg/dL (8.4-10.2); CARBON DIOXIDE 24 mmol/L (22-29); CHLORIDE 106 mmol/L (98-107); CREATININE, SERUM 0.91 mg/dL (0.72-1.25); EST GLOMERULAR FILTRATION RATE > 60 ML/MIN (60-); GLUCOSE 90 mg/dL (74-118); POTASSIUM 3.7 mmol/L (3.5-5.1); SODIUM 138 mmol/L (136-145)
--- NOTE | 2018-12-05 06:32 | NUR ---
covering attending MD rounding on patient. per attendings standpoint, patient is clear for discharge. MD has left prescriptions in the chart. attending wants retail support specialist to be contacted prior to discharge so that retail support specialist can write prescriptions for amiodarone. Contact retail support specialist prior to discharging patient.
--- NOTE | 2018-12-05 06:53 | Progress Note ---
DATE: Patient is a 68-year-old male who is status post tPA for pulmonary embolism. Patient is currently asymptomatic. Currently, also has transient AFib, and is on anticoagulation. Currently, afebrile. No bleeding. No chest pains. MEDICATIONS: The patient is on amiodarone, aspirin, albuterol and Atrovent treatments as needed, metoprolol, and Xarelto. The patient is also taking lorazepam 2 mg, which is his home medication for anxiety. PHYSICAL EXAMINATION VITAL SIGNS: Temperature is 98.8, pulse of 86, respirations of 20, blood pressure is 155/68, pulse oximetry of 97%. HEENT: Normocephalic and atraumatic. Pupils reactive to light and accommodation. CV: S1 and S2 normal. Currently, the patient goes in and out of AFib. ABDOMEN: Nontender and nondistended. EXTREMITIES: No clubbing. No cyanosis. No edema. LABORATORY VALUES: Hemoglobin is 11.8, hematocrit of 35.8. No left shift present. Chemistry: Sodium 138, BUN 11.7, creatinine of 14, and potassium is 3.7. ASSESSMENT 1. Pulmonary embolism: Status post tPA. 2. Ventricular dysfunction. 3. Deep venous thrombosis. 4. Hypertension. 5. Paroxysmal atrial fibrillation. 6. Hyperlipidemia. Continue monitoring on tele. The patient has been anticoagulated adequately and is on Xarelto. Is on amiodarone p.o. Patient will continue on the same medications on discharge, and also on beta blockade. Patient can be discharged today if it is okay with consultants. Further recommendations as an outpatient. Patient will be followed up by Dr. Kendrick in about a weeks' time. For further information, look on the chart. Job#: [id number] AMIE
--- NOTE | 2018-12-05 06:55 | NUR ---
report given to day nurse. patient is resting in bed. bed is in lowest position and call lopez is within reach.
--- NOTE | 2018-12-05 07:16 | NUR ---
Rcvd patient in report this am. Patient is asleep in bed at this time. No s/s of distress noted
[2018-12-05 07:44] VITALS: BP 142/80
[2018-12-05] MEDS: PANTOPRAZOLE SOD 40 MG TABEC PO SCH (08:35)
[2018-12-05] MEDS: RIVAROXABAN 15 MG TABLET PO SCH (08:35)
[2018-12-05] MEDS: LORATADINE 10 MG TAB PO SCH (08:35)
[2018-12-05] MEDS: METOPROLOL TARTRATE 50 MG TAB PO SCH (08:35)
[2018-12-05] MEDS: AMIODARONE HCL 200 MG TAB PO SCH (08:35)
[2018-12-05] MEDS: ASPIRIN 81 MG ENTERIC COATED PO SCH (08:35)
[2018-12-05] MEDS: POTASSIUM CHLORIDE 20 MEQ TAB CR PO SCH (08:35)
[2018-12-05 09:28] VITALS: BP 142/80
--- NOTE | 2018-12-05 09:41 | NUR ---
Patient refusing lung scan.
--- NOTE | 2018-12-05 09:42 | NUR ---
Patient refusing VQ scan and informed dr. gore. Patient has discharge orders
[2018-12-05] MEDS ORDERED: METOPROLOL TART50 MG PO (09:51)
[2018-12-05] MEDS ORDERED: AMIODARONE HCL200 MG PO (09:51)
[2018-12-05] MEDS ORDERED: XARELTO10 MG PO (09:52)
--- NOTE | 2018-12-05 10:03 | NUR ---
Removed PICC line from right upper arm. Tip intact. Pressure applied for 5 minutes and pressure dressing applied. No bleeding noted. Right upper arm bruised from being on blood thinners. No shortness or breath noted.
--- NOTE | 2018-12-05 10:32 | NUR ---
Patient discharged from facility to home. Patient assisted out via wheelchair and staff. Reviewed all discharge paperwork, follow up appts, and RX's given. Patient was given a coupon for xarelto. Patient refused to get it. This nurse informed the patient to get it for this time and follow up with dr. storm. Patient agreed
--- NOTE | 2018-12-05 10:42 | Progress Note ---
DATE: December 05, 2018 CARDIOLOGY PROGRESS NOTE SUBJECTIVE: Patient denies chest pain or shortness of breath. OBJECTIVE VITAL SIGNS: Temperature 97 degrees, pulse 77, respiratory rate 20, blood pressure 142/80, oxygen saturation 93% on room air. GENERAL: Awake and alert, in no acute distress. LUNGS: Clear to auscultation bilaterally. No wheezes or crackles. CARDIOVASCULAR: Normal rate, regular rhythm. No murmur. Normal S1 and S2. ABDOMEN: Soft. Nontender. EXTREMITIES: No edema. CARDIAC MEDICATIONS 1. Metoprolol tartrate 100 mg p.o. b.i.d. 2. Amiodarone 200 mg p.o. b.i.d. 3. Rivaroxaban 15 mg p.o. b.i.d. 4. Aspirin 81 mg p.o. daily. LABS: WBC 7.51, hemoglobin 11.8, hematocrit 35.3, platelets 199. Sodium 138, potassium 3.7, chloride 106, CO2 24, BUN 14, creatinine 0.91. TELEMETRY: Normal sinus rhythm. IMPRESSION 1. Acute bilateral pulmonary emboli. 2. Paroxysmal atrial flutter, currently normal sinus rhythm. 3. Acute right ventricular dysfunction. 4. Acute deep venous thrombosis in the left lower extremity. 5. Hypertension. RECOMMENDATIONS: Prescriptions were provided to the patient for Xarelto for treatment of the patient's acute venous thromboembolism. He was counseled on the importance of medication adherence. Patient will need followup echo 1 week after discharge. The patient is currently in normal sinus rhythm. We will continue amiodarone and metoprolol. He was instructed on the importance of followup with cardiology for management of his atrial flutter. He is anticoagulated with Xarelto for PE, which will also cover his need for anticoagulation for CVA prophylaxis. With regards to the patient's elevated troponin, he will need to follow up with cardiology for further ischemic evaluation. Continue current cardiac medications otherwise. Thank you for this consult. We will continue to follow. Job#: [id number]
--- NOTE | 2018-12-05 10:52 | NUR ---
IMM EXPLAINED, SIGNED BY PT AND PLACED ON CHART COPY OF IMM TO PT IN CARE TRANSITION FOLDER
== END 2018-12-05 10:32 | disposition home or self-care (01) | DRG 299 ==
LOC: ER 11:42 → ERHOLD 14:59 → IMCU 21:25 → ERHOLD 21:57 → MED/SURG 12-03 18:20
PROVIDERS: ADMIT Internal Medicine; ATTEND Internal Medicine
PROC: 02HV33Z Insertion of Infusion Device into Superior Vena Cava, Percutaneous Approach (ICD-10-PCS; principal; 2018-12-02)
DX: I82.402 Acute embolism and thrombosis of unspecified deep veins of left lower extremity (principal); I26.99 Other pulmonary embolism without acute cor pulmonale; I13.0 Hypertensive heart and chronic kidney disease with heart failure and stage 1 through stage 4 chronic kidney disease, or unspecified chronic kidney disease; E78.5 Hyperlipidemia, unspecified; N18.3 Chronic kidney disease, stage 3 (moderate); I50.813 Acute on chronic right heart failure; I48.0 Paroxysmal atrial fibrillation; Z79.01 Long term (current) use of anticoagulants; L80 Vitiligo; H81.09 Meniere's disease, unspecified ear
CPT/HCPCS: 36415; 36569; 71045; 71260; 80048; 80053; 81001; 82378; 82550; 82553; 83880; 84443; 84484; 85025; 85610; 85730; 87086; 87400; 93005; 93306; 93970; 99285; J1644; J2270; J2405; J7030; Q9967

== ENCOUNTER → 2021-08-14 | Outpatient (CLI) | payer MEDICARE ==
[~2021-08-14] MED LIST: AMIODARONE HCL200 MG PO; BYSTOLIC10 MG PO; FUROSEMIDE40 MG PO; LORAZEPAM2 MG PO; LOW DOSE ASPIRI81 MG PO; METOPROLOL TART50 MG PO; POTASSIUM CHLO20 ME1 PO; TRIAMTERENE-HC1 EAC2 PO; XARELTO10 MG PO; ZYRTEC10 M3 PO
== END ==
LOC: MRI 12:24
PROVIDERS: ATTEND Internal Medicine
DX: M54.2 Cervicalgia (principal)
CPT/HCPCS: 72141

== ENCOUNTER 2024-12-18 16:24 | Inpatient (IN) | payer MEDICARE ==
[~2024-12-18] VITALS: Ht 185.4 cm; Wt 78.2 kg
[2024-12-18 16:41] VITALS: TEMP 97.7
[2024-12-18 17:12] LABS: BASOPHILS # (AUTO) 0.1 (0.0-0.1); BASOPHILS % 0.9 % (0.0-1.0); EOSINOPHILS # (AUTO) 0.5 (0.0-0.4); EOSINOPHILS % 5.5 % (0.0-6.0); HEMATOCRIT 40.9 % (38.2-49.6); HEMOGLOBIN 13.6 g/dL (14.0-18.0); LYMPHOCYTES # (AUTO) 1.5 (1.0-3.2); LYMPHOCYTES % 16.2 % (18.0-39.1); MEAN CORPUSCULAR HEMOGLOBIN 31.3 pg (28-32); MEAN CORPUSCULAR HGB CONC 33.3 g/dL (31-35); MEAN CORPUSCULAR VOLUME 94.2 fL (81-99); MONOCYTES % 10.6 % (4.4-11.3); NEUTROPHILS # (AUTO) 5.9 (2.1-6.9); NEUTROPHILS % 66.4 % (38.7-80.0); PLATELET COUNT 288 x10e3/uL (140-360); RED BLOOD COUNT 4.34 x10e6/uL (4.3-5.7); RED CELL DISTRIBUTION WIDTH 14.4 % (11.7-14.4); WHITE BLOOD COUNT 8.95 x10e3/uL (4.8-10.8)
[2024-12-18 17:27] LABS: CORONAVIRUS COVID-19 AG NEGATIVE (NEGATIVE); INFLUENZA A AG NEGATIVE (NEGATIVE); INFLUENZA B AG NEGATIVE (NEGATIVE)
[2024-12-18 17:29] LABS: INR 1.81; PARTIAL THROMBOPLASTIN TIME 31.5 seconds (23.8-35.5); PROTHROMBIN TIME 21.9 seconds (11.9-14.5)
[2024-12-18 17:38] LABS: ALBUMIN 3.4 g/dL (3.5-5.0); ALBUMIN/GLOBULIN RATIO 0.8 (0.8-2.0); ANION GAP 14.4 mmol/L (8-16); BILIRUBIN,TOTAL 0.9 mg/dL (0.2-1.2); CALCIUM 8.7 mg/dL (8.4-10.2); CREATININE, SERUM 1.65 mg/dL (0.72-1.25); POTASSIUM 4.4 mmol/L (3.5-5.1); TOTAL PROTEIN 7.9 g/dL (6.5-8.1)
[2024-12-18 19:00] VITALS: PULSE 98; RESP 18; O2SAT 98
[2024-12-18 20:32] VITALS: PULSE 97; RESP 12
[2024-12-18 21:00] VITALS: BP 135/101; PULSE 106; RESP 20; TEMP 97.6; O2SAT 96
[2024-12-18] MEDS: ASPIRIN 81 MG CHEW TAB PO ONE (21:19)
[2024-12-18] MEDS: FUROSEMIDE INJ 10 MG/ML 4 ML VIAL IV SCH (21:24)
[2024-12-18] MEDS: METOPROLOL TARTRATE 25 MG TAB PO SCH (21:25)
[2024-12-18 21:44] VITALS: BP 135/101; PULSE 106; RESP 20; TEMP 97.6; O2SAT 96
[2024-12-18] MEDS ORDERED: WARFARIN SODIUM4 MG (22:34)
[2024-12-18] MEDS ORDERED: FLOMAX0.4 MG PO (22:34)
[2024-12-18 22:44] VITALS: BP 135/101; PULSE 106
[2024-12-18] MEDS: LORAZEPAM 1 MG TAB PO ONE (23:21)
[2024-12-19] VITALS (9 sets, daily range): BP systolic 97–117; BP diastolic 68–85; PULSE 62–92; RESP 18–20; TEMP 97.2–98.7; O2SAT 93–99
[2024-12-19] MEDS ORDERED: HYDRALAZINE HCL 20 MG/ML VIAL IV PRN (04:45)
[2024-12-19 05:48] LABS: BASOPHILS # (AUTO) 0.1 (0.0-0.1); BASOPHILS % 0.7 % (0.0-1.0); EOSINOPHILS # (AUTO) 0.5 (0.0-0.4); EOSINOPHILS % 5.2 % (0.0-6.0); HEMATOCRIT 41.3 % (38.2-49.6); HEMOGLOBIN 13.8 g/dL (14.0-18.0); LYMPHOCYTES % 11.7 % (18.0-39.1); MEAN CORPUSCULAR HEMOGLOBIN 31.4 pg (28-32); MEAN CORPUSCULAR HGB CONC 33.4 g/dL (31-35); MEAN CORPUSCULAR VOLUME 94.1 fL (81-99); MONOCYTES % 12.1 % (4.4-11.3); PLATELET COUNT 287 x10e3/uL (140-360); RED BLOOD COUNT 4.39 x10e6/uL (4.3-5.7); RED CELL DISTRIBUTION WIDTH 14.3 % (11.7-14.4)
[2024-12-19 06:30] LABS: ALBUMIN 3.3 g/dL (3.5-5.0); ALBUMIN/GLOBULIN RATIO 0.7 (0.8-2.0); ANION GAP 14.9 mmol/L (8-16); CALCIUM 8.8 mg/dL (8.4-10.2); CREATININE, SERUM 1.54 mg/dL (0.72-1.25); POTASSIUM 3.9 mmol/L (3.5-5.1)
[2024-12-19 06:55] LABS: TROPONIN I 0.004 ng/mL (0-0.300)
[2024-12-19] MEDS: TAMSULOSIN HCL 0.4 MG CAP PO SCH ×2 (09:00→17:41)
[2024-12-19] MEDS: LORATADINE 10 MG TAB PO SCH (09:00)
[2024-12-19] MEDS: ASPIRIN 81 MG ENTERIC COATED PO SCH (09:58)
[2024-12-19] MEDS: AMIODARONE HCL 200 MG TAB PO SCH (09:59)
[2024-12-19] MEDS: POTASSIUM CHLORIDE 20 MEQ TAB CR PO SCH (10:01)
[2024-12-19 14:58] LABS: CREATINE KINASE 125 IU/L (30-200)
[2024-12-19 15:04] LABS: TROPONIN I < 0.001 ng/mL (0-0.300)
[2024-12-19] MEDS: LORAZEPAM 1 MG TAB PO PRN (15:05)
[2024-12-20] VITALS (7 sets, daily range): BP systolic 96–159; BP diastolic 50–98; PULSE 65–105; RESP 16–20; TEMP 97.3–99.1; O2SAT 92–98
[2024-12-20 07:37] LABS: BASOPHILS # (AUTO) 0.1 (0.0-0.1); BASOPHILS % 0.8 % (0.0-1.0); EOSINOPHILS # (AUTO) 0.5 (0.0-0.4); EOSINOPHILS % 4.4 % (0.0-6.0); HEMATOCRIT 41.2 % (38.2-49.6); HEMOGLOBIN 13.9 g/dL (14.0-18.0); LYMPHOCYTES # (AUTO) 1.2 (1.0-3.2); LYMPHOCYTES % 11.7 % (18.0-39.1); MEAN CORPUSCULAR HEMOGLOBIN 31.1 pg (28-32); MEAN CORPUSCULAR HGB CONC 33.7 g/dL (31-35); MEAN CORPUSCULAR VOLUME 92.2 fL (81-99); MONOCYTES # (AUTO) 1.3 (0.2-0.8); MONOCYTES % 12.1 % (4.4-11.3); NEUTROPHILS # (AUTO) 7.4 (2.1-6.9); NEUTROPHILS % 70.6 % (38.7-80.0); PLATELET COUNT 287 x10e3/uL (140-360); RED BLOOD COUNT 4.47 x10e6/uL (4.3-5.7); RED CELL DISTRIBUTION WIDTH 14.4 % (11.7-14.4); WHITE BLOOD COUNT 10.49 x10e3/uL (4.8-10.8)
[2024-12-20 08:07] LABS: ALBUMIN 3.3 g/dL (3.5-5.0); ALBUMIN/GLOBULIN RATIO 0.7 (0.8-2.0); ANION GAP 15.9 mmol/L (8-16); BILIRUBIN,TOTAL 1.1 mg/dL (0.2-1.2); CREATININE, SERUM 1.89 mg/dL (0.72-1.25); POTASSIUM 3.9 mmol/L (3.5-5.1); TOTAL PROTEIN 8.1 g/dL (6.5-8.1)
[2024-12-21] VITALS (9 sets, daily range): BP systolic 99–124; BP diastolic 51–79; PULSE 62–104; RESP 16–19; TEMP 97.4–98.6; O2SAT 94–100
[2024-12-21 05:45] LABS: BASOPHILS # (AUTO) 0.1 (0.0-0.1); BASOPHILS % 0.8 % (0.0-1.0); EOSINOPHILS # (AUTO) 0.5 (0.0-0.4); EOSINOPHILS % 5.5 % (0.0-6.0); HEMATOCRIT 43.6 % (38.2-49.6); HEMOGLOBIN 14.5 g/dL (14.0-18.0); LYMPHOCYTES # (AUTO) 1.1 (1.0-3.2); LYMPHOCYTES % 13.2 % (18.0-39.1); MEAN CORPUSCULAR HEMOGLOBIN 31.2 pg (28-32); MEAN CORPUSCULAR HGB CONC 33.3 g/dL (31-35); MEAN CORPUSCULAR VOLUME 93.8 fL (81-99); MONOCYTES % 11.5 % (4.4-11.3); NEUTROPHILS # (AUTO) 5.8 (2.1-6.9); NEUTROPHILS % 68.5 % (38.7-80.0); PLATELET COUNT 281 x10e3/uL (140-360); RED BLOOD COUNT 4.65 x10e6/uL (4.3-5.7); RED CELL DISTRIBUTION WIDTH 14.4 % (11.7-14.4); WHITE BLOOD COUNT 8.43 x10e3/uL (4.8-10.8)
[2024-12-21 06:16] LABS: ALBUMIN 3.2 g/dL (3.5-5.0); ALBUMIN/GLOBULIN RATIO 0.7 (0.8-2.0); ANION GAP 16.1 mmol/L (8-16); BILIRUBIN,TOTAL 1.2 mg/dL (0.2-1.2); CREATININE, SERUM 1.89 mg/dL (0.72-1.25); MAGNESIUM 2.3 MG/DL (1.3-2.1); POTASSIUM 4.1 mmol/L (3.5-5.1); TOTAL PROTEIN 8.1 g/dL (6.5-8.1)
[2024-12-21] MEDS: METOPROLOL TARTRATE 25 MG TAB PO SCH (09:15)
[2024-12-21] MEDS: WARFARIN SOD 2 MG TAB PO SCH (17:54)
[2024-12-22 04:00] VITALS: BP 107/71; PULSE 74; RESP 18; TEMP 97.9; O2SAT 95
[2024-12-22 07:40] VITALS: BP 116/70; PULSE 68; RESP 20; TEMP 97.9; O2SAT 95
[2024-12-22 08:38] VITALS: BP 116/70; PULSE 68; RESP 20; TEMP 97.9; O2SAT 95
[2024-12-22 09:16] VITALS: BP 116/70; PULSE 68
== END 2024-12-22 10:22 | disposition home or self-care (01) | DRG 291 ==
LOC: ER 16:49 → ERHOLD 20:30 → MED/SURG2 22:11 → OBSVTOIN 12-20 11:07
PROVIDERS: ADMIT Internal Medicine; ATTEND Internal Medicine
DX: I13.0 Hypertensive heart and chronic kidney disease with heart failure and stage 1 through stage 4 chronic kidney disease, or unspecified chronic kidney disease (principal); I50.21 Acute systolic (congestive) heart failure; N17.9 Acute kidney failure, unspecified; J84.10 Pulmonary fibrosis, unspecified; Z79.01 Long term (current) use of anticoagulants; E78.5 Hyperlipidemia, unspecified; N18.32 Chronic kidney disease, stage 3b; I48.91 Unspecified atrial fibrillation; I35.1 Nonrheumatic aortic (valve) insufficiency; N40.0 Benign prostatic hyperplasia without lower urinary tract symptoms; F41.9 Anxiety disorder, unspecified; Z11.52 Encounter for screening for COVID-19; Z79.82 Long term (current) use of aspirin; Z86.711 Personal history of pulmonary embolism; Z86.718 Personal history of other venous thrombosis and embolism; Z88.1 Allergy status to other antibiotic agents
CPT/HCPCS: 36415; 71046; 71250; 74176; 80053; 82550; 83735; 83880; 84484; 85025; 85610; 85730; 93005; 93306; 94799; 99284; G0378; J0696; J1940